=== PATIENT | male | born 1955 | race Caucasian/White ===

== ENCOUNTER → 2018-04-04 | Outpatient (CLI) | payer OTHER ==
[~2018-04-04] MED LIST: HYDROXYZINE HCL25 M1 PO; KLONOPIN PO; NORCO 5-325 TA1 EACH PO; RISPERDAL 1 MG T1 MG PO; RISPERDAL2 MG PO; VALIUM5 MG PO
== END ==
LOC: CAT 07:39
DX: R10.9 Unspecified abdominal pain (principal); M25.78 Osteophyte, vertebrae